=== PATIENT | female | born 1950 | race Two or more races ===

== ENCOUNTER 2017-08-20 12:20 | Outpatient (CLI) | payer OTHER | END 2017-08-20 12:22 | disposition home or self-care (01) | LOC: RAD 12:20 | DX: J44.9 Chronic obstructive pulmonary disease, unspecified (principal) ==

== ENCOUNTER 2017-12-26 08:49 | Outpatient (CLI) | payer OTHER | END 2017-12-26 08:51 | disposition home or self-care (01) | LOC: SONOGRAMA 08:49 | DX: R10.84 Generalized abdominal pain (principal) ==

== ENCOUNTER 2018-06-09 09:00 | Outpatient (CLI) | payer OTHER | END 2018-06-09 09:18 | disposition home or self-care (01) | LOC: RAD 09:00 | DX: M54.31 Sciatica, right side (principal); R13.19 Other dysphagia | CPT/HCPCS: 72148 ==

== ENCOUNTER → 2018-12-23 | Outpatient (CLI) | payer OTHER | END | disposition home or self-care (01) | LOC: SONOGRAMA 10:30 | DX: K11.21 Acute sialoadenitis (principal); E04.2 Nontoxic multinodular goiter ==

== ENCOUNTER 2019-01-12 08:35 | Outpatient (CLI) | payer OTHER | END 2019-01-12 08:38 | disposition home or self-care (01) | LOC: TOM 08:35 | DX: E04.1 Nontoxic single thyroid nodule (principal) | CPT/HCPCS: 70491; Q9965 ==

== ENCOUNTER 2019-05-25 12:29 | Outpatient (CLI) | payer OTHER | END 2019-05-25 12:31 | disposition home or self-care (01) | LOC: RAD 12:29 | DX: M15.8 Other polyosteoarthritis (principal) ==

== ENCOUNTER 2020-10-06 12:51 | Outpatient (CLI) | payer OTHER | END 2020-10-06 12:53 | disposition home or self-care (01) | LOC: NUCLEAR 12:51 | PROVIDERS: ATTEND Obstetrics & Gynecology | DX: M81.0 Age-related osteoporosis without current pathological fracture (principal) ==

== ENCOUNTER → 2021-10-12 | Outpatient (CLI) | payer OTHER | END | disposition home or self-care (01) | LOC: SONOGRAMA 09:30 | PROVIDERS: ATTEND Internal Medicine Gastroenterology | DX: R10.9 Unspecified abdominal pain (principal); E04.1 Nontoxic single thyroid nodule ==

== ENCOUNTER 2022-01-13 11:20 | Emergency (ER) | payer OTHER ==
[~2022-01-13] VITALS: Ht 157.5 cm; Wt 68.0 kg
[2022-01-13] MEDS ORDERED: SYNTHROID50 MCG PO (11:28)
[2022-01-13] MEDS ORDERED: FAMOTIDINE40 MG PO (11:28)
[2022-01-13] MEDS ORDERED: EZETIMIBE10 MG PO (11:28)
[2022-01-13] MEDS ORDERED: OMEPRAZOLE40 MG PO (11:28)
[2022-01-13] MEDS ORDERED: SIMVASTATIN40 MG PO (11:29)
[2022-01-13] MEDS ORDERED: AMOX-CLAV 875-1 EACH PO (14:27)
[2022-01-13] MEDS ORDERED: MEDROLPACK PO (14:27)
== END 2022-01-13 15:12 | disposition home or self-care (01) ==
LOC: ER 11:20
DX: S52.025A Nondisplaced fracture of olecranon process without intraarticular extension of left ulna, initial encounter for closed fracture (principal); W01.0XXA Fall on same level from slipping, tripping and stumbling without subsequent striking against object, initial encounter; Y93.9 Activity, unspecified; Y92.018 Other place in single-family (private) house as the place of occurrence of the external cause; S89.91XA Unspecified injury of right lower leg, initial encounter; S29.9XXA Unspecified injury of thorax, initial encounter

== ENCOUNTER 2022-11-01 11:32 | Emergency (ER) | payer OTHER ==
[~2022-11-01] VITALS: Ht 165.1 cm; Wt 54.4 kg
[~2022-11-01 11:32] MED LIST: AMOX-CLAV 875-1 EACH PO; EZETIMIBE10 MG PO; FAMOTIDINE40 MG PO; MEDROLPACK PO; OMEPRAZOLE40 MG PO; SIMVASTATIN40 MG PO; SYNTHROID50 MCG PO
== END 2022-11-01 16:39 | disposition home or self-care (01) ==
LOC: ER 11:32
DX: J40 Bronchitis, not specified as acute or chronic (principal); E05.80 Other thyrotoxicosis without thyrotoxic crisis or storm; Z20.822 Contact with and (suspected) exposure to COVID-19
CPT/HCPCS: 36415; 71046; 94640; 96365; 99284; J2930

== ENCOUNTER 2023-02-04 07:22 | Outpatient (CLI) | payer OTHER | END 2023-02-04 07:28 | disposition home or self-care (01) | LOC: TOM 07:22 | PROVIDERS: ATTEND Internal Medicine Gastroenterology | DX: R10.84 Generalized abdominal pain (principal) ==

== ENCOUNTER 2023-03-13 07:18 | Outpatient (CLI) | payer OTHER | END 2023-03-13 07:21 | disposition home or self-care (01) | LOC: NUCLEAR 07:18 | PROVIDERS: ATTEND Internal Medicine Gastroenterology | DX: K31.84 Gastroparesis (principal) | CPT/HCPCS: 78264; A9541 ==

== ENCOUNTER 2023-06-30 10:20 | Outpatient (CLI) | payer OTHER | END 2023-06-30 10:29 | disposition home or self-care (01) | LOC: SONOGRAMA 10:20 | PROVIDERS: ATTEND Internal Medicine Endocrinology, Diabetes & Metabolism | DX: E04.1 Nontoxic single thyroid nodule (principal) ==

== ENCOUNTER → 2024-02-06 | Outpatient (CLI) | payer OTHER | END | disposition home or self-care (01) | LOC: RAD 11:26 | PROVIDERS: ATTEND General Practice | DX: M25.571 Pain in right ankle and joints of right foot (principal) ==